=== PATIENT | female | born 1990 | race American Indian/Alaskan Native ===

== ENCOUNTER 2019-01-25 12:17 | Outpatient (CLI) | payer BC ==
--- NOTE | 2019-01-25 14:43 | Ultrasound Report ---
ULTRASOUND ABDOMEN, COMPLETE INDICATION: Epigastric pain, nausea and vomiting. COMPARISON: No relevant prior imaging study available. FINDINGS: Pancreas: No significant abnormality. Abdominal Aorta: No significant abnormality. IVC: No significant abnormality. Liver: The liver measures 19 cm in length. No significant abnormality. Normal hepatopedal blood flow in the main portal vein. Gallbladder: There are gallstones in the gallbladder without gallbladder wall thickening or distentio n. Negative sonographic Peres sign. Bile ducts: No significant abnormality. Common bile duct measures 2 mm. Right kidney: 9.3 cm in length. No significant abnormality. Left kidney: 11.9 cm in length. No significant abnormality. Spleen: No significant abnormality. Free fluid: None. Additional Findings: None. IMPRESSION: 1. Cholelithiasis without evidence of acute cholecystitis. Signer Name: Jude Mejia MD Signed: 01/25/2019 2:39 PM Workstation Name: [id number]
== END 2019-01-25 12:18 | disposition home or self-care (01) ==
LOC: US 12:17
PROVIDERS: ATTEND Internal Medicine Gastroenterology
DX: K80.20 Calculus of gallbladder without cholecystitis without obstruction (principal); K30 Functional dyspepsia
CPT/HCPCS: 76700